=== PATIENT | male | born 1965 | race Caucasian/White ===

== ENCOUNTER 2016-04-08 09:22 | Day surgery (SDC) | payer OTHER ==
[~2016-04-08] VITALS: Ht 170.2 cm; Wt 91.0 kg
[~2016-04-08 09:22] MED LIST: Dexamethasone 10 mg/mL Inj IV ONE; FLUT16SP NS; Lactated Ringer's 1,000 ML IV ONE
[2016-04-08] MEDS ORDERED: 0.9% Sodium Chloride 0 ML ONE (09:39)
[2016-04-08 09:49] VITALS: BP 118/79; PULSE 67; RESP 12; O2SAT 96
[2016-04-08] MEDS ORDERED: Dexamethasone Inj 20 MG in 0.9% Sodium Chloride-Pha MIX 50 ML IV ONE (10:00)
[2016-05-03] MEDS ORDERED: TOPI50TA88 PO (10:21)
[2016-05-03] MEDS ORDERED: NADO20TA PO (10:21)
== END 2016-04-08 23:59 | disposition home or self-care (01) ==
LOC: SAS 09:22
PROVIDERS: ATTEND Otolaryngology Facial Plastic Surgery
DX: J32.4 Chronic pansinusitis (principal); Z53.8 Procedure and treatment not carried out for other reasons

== ENCOUNTER 2016-05-06 08:37 | Day surgery (SDC) | payer OTHER ==
[~2016-05-06] VITALS: Ht 170.2 cm; Wt 92.1 kg
[2016-05-06] VITALS (9 sets, daily range): BP systolic 119–135; BP diastolic 66–89; PULSE 61–75; RESP 10–16; O2SAT 95–100
[~2016-05-06 08:37] MED LIST changes: +NADO20TA PO; +TOPI50TA88 PO
[2016-05-06] MEDS ORDERED: Ondansetron 2 mg/mL 2 mL Inj ONE (08:38)
[2016-05-06] MEDS ORDERED: fentaNYL-PF 50 mCg/mL 2 mL Inj ONE (08:38)
[2016-05-06] MEDS ORDERED: Lidocaine PF 1% 30 mL Inj ONE (08:38)
[2016-05-06] MEDS ORDERED: Propofol 10,000 mCg/mL 20 mL Inj ONE (08:38)
[2016-05-06] MEDS ORDERED: Lactated Ringer's 1,000 ML IV ONE (09:02)
[2016-05-06] MEDS ORDERED: Dexamethasone Inj 20 MG in 0.9% Sodium Chloride-Pha MIX 50 ML IV ONE (09:25)
--- NOTE | 2016-05-06 09:30 | PCM.HPANE ---
Patient Data Date of Service: May 06, 2016 Surgeon Admitting Provider: Attending Provider:Matheus Garcia MD Primary Care Physician:María Barr MD Other Provider:Mandi Harrington Anesthesia Reason for Visit Chronic Pansinusitis, Nasal Obstruction, Other Chr Ht/WT & BMI Height (Feet): 5 Height (Inches): 7.00 Weight (Kilograms): 92.079 Body Mass Index 31.00 Allergies Coded Allergies: Penicillins (Verified Allergy, Severe, HIVES, 05/03/16) Past Anesthesia History Anesthesia History: Denies:: Anesthesia Reactions, Fam Anesthesia Reaction, Malignant Hyperthermia Diabetes History Hx Diabetes?: No MRSA MRSA: No Medications Home Meds Incl Beta Margarita: No Reported Medications Topiramate 50 Mg [id number] Mg PO DAILY Ref 0 05/03/16 Nadolol 20 Mg [id number] Mg PO DAILY 30 Days Ref 0 05/03/16 Fluticasone Propionate (Fluticasone Propionate Nasal)16 Gm Tavares.susp1 Tavares NS BID #16 GM Ref 0 04/05/16 History History of ENT Problems?: Yes HEENT History: Positive for:: Cataracts (forming in right eye, being monitored ) Hearing Problem Sinus Problem (CHRONIC PANSINUSITIS/NASAL OBSTRUCTION=CURRENT PROBLEM) Hx of Heart Problems?: Yes Cardiovascular History: Positive for:: Hypertension Denies:: AICD Heart Murmur Irregular Heartbeat Pacemaker Rheumatic Fever Thrombophlebitis Hx of Respiratory Problem?: Yes Respiratory History: Positive for:: Asthma Use of C-PAP Machine (TRENA+ W/ CPAP SLEEP CLINIC EVAL 11/2015) Denies:: COPD Emphysema Pneumonia Tuberculosis Hx Neurologic Problems?: No Neurological History: Positive for:: Headaches (related to sinus pressure) Denies:: CVA Dementia Dizziness Multiple Sclerosis Parkinson's Disease Seizures Other Neurological Pertinent: POST-TRAUMATIC BRAIN SYNDROME Hx of GI Problems?: No Gastrointestinal History: Denies:: Cirrhosis Diverticulitis Gastroesphageal Reflux Gastrointestinal Bleeding Heartburn Hepatitis Hiatal Hernia Rectal Bleeding Hx of Problems?: No Genitourinary History: Denies:: Kidney Stones Urinary Tract Infection Male Hx: Denies:: Prostate Problems Scrotal Mass Testicular Surgery Skin History: Positive for:: History Skin Disorders? 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 Blood Transfusions Hx Diabetes: No Hx Alcohol Use: YesAlcoholic Drinks Per Day: 2-4/WEEKHx Substance Use: No Smoking Status: Former Smoker Have You Smoked inLast 12 mo: No Stop/Bang Treated for Sleep Apnea?: Yes Do You Have a CPAP Machine?: Yes S-Snoring: Do You Snore Loudly: Yes T-Tired: feel tired, fatigued: No O-Obsered: Observed not breath: No P-Blood Pressure: treated: Yes B- Body Mass Index > 35 kg/m2: No A- Age over 50: No N- Neck Large Circumference: No G- Gender Male: Yes TRENA Total Score: 3 TRENA Risk Assessment: High Risk, =/>3 Yes TRENA Category 4 OutPt Procedure: Yes Risk Assessment Category Category 1A: Patient has history of documented sleep apnea, and HAS NOT received any narcotic, sedative or anesthesia administration during this stay. Category 1B: Patient has history of documented sleep apnea, and HAS received any narcotic , sedative or anesthesia administration during this stay Category 2: Patient has SUSPECTED Obstructive Sleep Apnea, and HAS received any narcotic , sedative or anesthesia administration during this stay. Category 3: Patient has SUSPECTED Obstructive Sleep Apnea and HAS NOT received narcotic, sedative or anesthesia administration during this stay. Category 4: Outpatient in Procedural Areas with known sleep apnea or who screen positive for High Risk via the STOP/BANG questionnaire. Exam Exam Vital Signs Vital Signs Date Time Temp Pulse Resp B/P Pulse Ox O2 Delivery O2 Flow Rate FiO2 05/06/16 09:03 36.1 70 14 121/75 96 Room Air General Appearance: Alert, Oriented X3, Cooperative, No Acute Distress HEENT/AIRWAY: MP 1 Lungs: Normal Air Movement Heart: Exam Unremarkable Meds/Labs/Diagnostics Admission Meds Current Medications Lactated Ringer's (Lr) 1,000 ml @ ud STK-MED ONCE IV Last administered on 05/06t 09:02; Start 05/06/16 at 09:02; Stop 05/06/16 at 09:03; Status DC Plan Impression Patient chart reviewed, patient interviewed and anesthestic plan with risks, benefits, and alternatives discussed, and informed consent obtained. NPO Status: 05/05@1900 ASA Physical Status: ASA2 Mod Systemic Disease Anesthetic Plan: GA Bene/Risks/Altern/Consents: Yes HP Complete Prior to Induction: Yes Bunny Tristan MD May 06, 2016 09:30
[2016-05-06] MEDS ORDERED: Lidocaine 2%-Epi 1:100,000 20 mL Inj INFILTRATE ONE (09:50)
[2016-05-06] MEDS ORDERED: Lactated Ringer's 500 ML IV PRN (10:01)
[2016-05-06] MEDS ORDERED: Lactated Ringer's 1,000 ML IV SCH (10:01)
[2016-05-06] MEDS ORDERED: Ondansetron 2 mg/mL 2 mL Inj IVPUSH PRN (10:05)
[2016-05-06] MEDS ORDERED: Atropine 0.4 mg/mL Inj IVPUSH PRN (10:05)
[2016-05-06] MEDS ORDERED: fentaNYL-PF 50 mCg/mL 2 mL Inj IVPUSH PRN (10:05)
[2016-05-06] MEDS ORDERED: Labetalol 5 mg/mL 4 mL Inj IV PRN (10:05)
[2016-05-06] MEDS ORDERED: Dexamethasone 4 mg/mL Inj IVPUSH PRN (10:05)
[2016-05-06] MEDS ORDERED: HYDROmorphone 1 mg/mL Inj IVPUSH PRN (10:05)
[2016-05-06] MEDS ORDERED: hydrALAZINE 20 mg/mL Inj IVPUSH PRN (10:05)
[2016-05-06] MEDS ORDERED: EPHEDrine Sulfate 50 mg/mL Inj IVPUSH PRN (10:05)
[2016-05-06] MEDS ORDERED: MetoCLOpramide 5 mg/mL 2 mL Inj IVPUSH PRN ×2 (10:05→13:10)
[2016-05-06] MEDS ORDERED: Phenylephrine 10,000 mCg/mL Inj IVPUSH PRN (10:05)
--- NOTE | 2016-05-06 10:45 | PCM.ANEP1 ---
Post Anesthesia Phase 1 PACU Phase 1 Assessment Date of Service: May 06, 2016 Vital Signs Vital Signs Date Time Temp Pulse Resp B/P Pulse Ox O2 Delivery O2 Flow Rate FiO2 05/06/16 09:03 36.1 70 14 121/75 96 Room Air Anesthetic Administered: GA Level of Alertness: Sleeping, hard to arouse Pain: No Nausea or Vomiting: No Airway Device: Oralpharangeal Airway Oxygen Delivery: Simple Mask Lungs: Normal Air Movement Bunny Tristan MD May 06, 2016 10:45
--- NOTE | 2016-05-06 11:14 | PCM.ANEP2 ---
Post Anesthesia Evaluation ASA/CMS Post Anesthesia Date of Service: May 06, 2016 VS in Patient's Normal Range?: Yes Resp Stable; Airway Patent?: Yes CV Function & Hydration Stable: Yes Mental Status Recovered?: Yes Pain control Satisfactory?: Yes N/V Control Satisfactory?: Yes Bunny Tristan MD May 06, 2016 11:14
[2016-05-06] MEDS ORDERED: HYDROcodone-APAP 5-325 mg Tablet PO ONE (12:15)
[2016-05-06] MEDS ORDERED: HYDROCODONE PO PRN (13:10)
[2016-05-06] MEDS ORDERED: ACETAMINOPHEN PO PRN (13:10)
[2016-05-06] MEDS ORDERED: HYDROcodone-APAP 5-325 mg Tablet PO PRN (13:10)
--- NOTE | 2016-05-06 22:11 | OP ---
[address] [address] OPERATIVE REPORT PATIENT: MARY BANUELOS : 1965 MR#: [id number] ADMIT: 05/06/2016 JOB ID: [id number] DATE OF SURGERY: 05/06/2016 PREOPERATIVE DIAGNOSIS(ES): Chronic pansinusitis and nasal obstruction with turbinate hypertrophy. POSTOPERATIVE DIAGNOSIS(ES): Chronic pansinusitis and nasal obstruction with turbinate hypertrophy. PROCEDURE: 1. Bilateral total ethmoidectomy. 2. Frontal sinusotomies. 3. Maxillary sinusotomies. 4. Submucosal treatment of turbinates. SURGEON: Matheus Garcia MD HISTORY AND INDICATIONS: A 50-year-old gentleman with chronic nasal obstruction, chronic and recurrent acute infectious sinusitis. Temporary improvement with antibiotics and steroids but rapid recurrence. PROCEDURE AND FINDINGS: Patient taken to the operative room and placed in supine position on the operating table. LMA anesthesia induced. From the prep table, the hypertrophied inferior turbinates, uncinate processes and middle meatal area with polyps are injected with 2% lidocaine and 1:100,000 epinephrine. The nose was then packed with Afrin on cotton. Face prepped and draped in sterile fashion. Packing is removed. With a zero and 30 degree scope, the microdebrider was utilized on the right side to remove polyps from the middle meatus. Anesthesiologist/Physician polyps are submitted to pathology. The dissection continues into the posterior ethmoids, mid and anterior ethmoids, into the nasofrontal recess. Finding of polypoid disease throughout. The nasofrontal duct is visualized, cannulated. The maxillary antrostomy is enlarged anteriorly and inferiorly with backbiting instrument and the microdebrider. The uncinate process was taken down completely. Once all areas were adequately opened, a folded Merocel pack is placed in the middle meatus. The same procedure occurred on the left side, same findings. The inferior turbinates fracture. A stab incision was made on the anterior tip with a Allan elevator. The turbinate bone is partially exposed. Portions were removed with the Susan. Further submucosal treatment of turbinates was undertaken with the suction cautery. Merocel sponges were placed in the nasal cavity bilaterally saturated with Afrin used to compress the turbinates. The patient is awakened in the operative room and returned to recovery in good condition. ESTIMATED BLOOD LOSS: 100 cc. PATHOLOGIC SPECIMENS: Polypoid disease from both sides is submitted. DRAINS: None. COMPLICATIONS: None.
--- NOTE | 2016-05-10 10:08 | PATH ---
SURGICAL PATHOLOGY Attending Physician:Matheus Garcia M.D. CASE STATUS: Signed Out PATIENT NAME: MARY BANUELOS PID: [id number] : 1965 DATE COLLECTED:05/06/2016 16:23 SPECIMEN: 1: Nasal Mucosa, Biopsy 2: Nasal Mucosa, Biopsy CLINICAL HISTORY: Chronic gavin-sinusitis, nasal obstruction 1).RIGHT NASAL POLYP 2).LEFT NASAL POLYP FINAL DIAGNOSIS: 1.RIGHT NASAL POLYP: FRAGMENTS OF NASAL MUCOSA AND FRAGMENT OF BENIGN NASAL POLYP, NEGATIVE FOR ATYPIA. 2.LEFT NASAL POLYP: BENIGN NASAL POLYP, NEGATIVE FOR ATYPIA. ICD10 CODE J33.9 GROSS DESCRIPTION: The specimen is received in two formalin filled containers labeled with the patient's name. 1). The specimen is sublabeled "right nasal polyp" and consists of 2 portions of tissue which aggregate to 0.5 x 0.3 x 0.3 CM. The specimen is entirely submitted in cassette 1A. 2). The specimen is sublabeled "left nasal polyp" and consists of an irregularly-shaped light joiner portion of tissue which measures 2.3 x 1.0 x 0.5 CM. The specimen is sectioned into 5 pieces and entirely submitted in cassette 2A. 05/06/2016 [facility] MICRO DESCRIPTION: See diagnosis. ICD-9 CODES: CPT CODES: 1: 10463 2: 36354 Electronically Signed Out Jairon Arguelles MD [facility] Pathology [facility] [address], [place] [address] Technical component performed at [facility], [address] [place] [address] Ave[address], [place], [address]
== END 2016-05-06 23:59 | disposition home or self-care (01) ==
LOC: SAS 08:37
PROVIDERS: ATTEND Otolaryngology Facial Plastic Surgery
DX: J33.8 Other polyp of sinus (principal); J32.4 Chronic pansinusitis; J34.3 Hypertrophy of nasal turbinates; I10 Essential (primary) hypertension; J45.909 Unspecified asthma, uncomplicated
CPT/HCPCS: 30140; 31255; 31256; 31276; J2250; J2405; J3010; J7120